=== PATIENT | female | born 1960 | race Caucasian/White ===

== ENCOUNTER 2020-03-22 14:25 | Inpatient (IN) | payer OTHER, MEDICARE ==
[~2020-03-22] VITALS: Ht 157.5 cm; Wt 62.1 kg
[~2020-03-22 14:25] MED LIST: AMBREN PO; PHENERGAN25 M3 PO; Z.0.DEXILANT60 MG PO; Z.0.LIALDA1.2 GM PO; Z.0.LIBRAX CAPSULE1 PO; Z.0.NORCO 5-325 TA1 PO; [UNRECOGNIZED DRUG - CODE] PO; [UNRECOGNIZED DRUG - OTHER] PO; [UNRECOGNIZED DRUG - OTHER] PO; [UNRECOGNIZED DRUG - OTHER] SL
[2020-03-22] MEDS ORDERED: ASPIRIN 81 MG CHEW TAB PO ONE ×2 (14:30→15:00)
--- OUTSIDE RECORDS SUMMARY | 2020-03-22 14:30 | XMS REPORT | Summary of Care ---
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 Name Role Phone JULISA Gifford, ZAFAR Unavailable Unavailable SARA STORY, KESHIA THOMAS Unavailable Unavailable Functional Status Name Dates Details Functional status health issues are not documented Status: Name Dates Details Cognitive status health issues are not d ocumented Status: Problems Name Dates Details Dysphagia (787.20, R13.10) Status: Active Gastric regurgitation (787.03, R11.10) Status: Active Heartburn (787.1, R12) Status: Active Hiatal hernia (553.3, K44.9) Status: Active Nocturnal cough (786.2, R05) Status: Active 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, 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 Medications Name Dates Details raNITIdine HCl - 300 MG Oral Tablet Active Mesalamine 1.2 GM Oral Tablet Delayed Release * Refills: 0 Active Dicyclomine HCl - 10 MG Oral Capsule * Refills: 0 Active Nadolol 20 MG Oral Tablet * Refills: 0 Active Dexilant 60 MG Oral Capsule Delayed Release * Refills: 0 Active Verapamil HCl - 120 MG Oral Tablet * Refills: 0 Active Allergies and Adverse Reactions Name Dates Details Adhesive Tape TAPE (Allergy) Status: Act christen Dilaudid (Allergy) Status: Active Erythromycin Derivatives (Allergy) Statu s: Active Imitrex (Allergy) Status: Active iodine (Allergy) Status: Active Morphine Derivatives (Allergy) Status: A ctive Penicillins (Allergy) Status: Active tramadol (Allergy) Status: Active Ultram TABS (Allergy) Status: Active Past Medical History Name Dates Details History of Crohn's disease (V12.70, Z87. 19) Status: Resolved History of hypercholesterolemia (V12.29, Z86.39) Status: Resolved History of Migraine (346.90, G43.909) Status: Resolved Past myocardial infarction (412, I25.2) Status: Resolved Procedures Procedure Dates Details History of Knee surgery Completed History of Cholecystectomy Completed History of Section Completed History of Oophorectomy Completed History of Tubal Ligation Completed History of Hysterectomy total Completed History of Small bowel resection Complet ed History of Inguinal hernia repair Comple lawson History of Temporomandibular joint surgery Completed Immunization Name Dates Details Immunizations not documented Family History Name Dates Details Family history of Status: Active Name Dates Details Family history of pancreatic cancer (V16 .0, Z80.0) Status: Active Social History Name Dates Details - Status: Name Dates Details Never smoker Vital Signs Date Test Result Details [id number] BP Systolic 109 mm[Hg] Status: Comments: Lo cation: RUE; Position: Sitting BP Diastolic 80 mm[Hg] Status: Comments: Lo cation: RUE; Position: Sitting Height 62 in Status: Weight 144.5 lb Status: Body Mass Index Calculated 26.43 kg/m2 Status: Body Surface Area Calculated 1.66 m2 Status: Temperature 98.2 f Status: Comments: Me thod: Oral Heart Rate 73 /min Status: Comments: Qu ality: Normal Respiration Rate 18 /min Status: Comments: Qu ality: Normal O2 SAT 95 % Status: Comments: So urce: RA Results Date Description Value Details Results not documented Plan of Care Name Dates Details Planned Observations Planned Goals not documented Interventions Provided Plan* At this time there is no indication for surgery. * I will refer her back to Dr. Salvador for management of her Nutcracker esophagus and a possible referral for Transoral Incisionless Fundoplication (TIF) procedure. Instructions Name Dates Details Instructions not documented Encounters Appointment; ZAFAR EGAN M.D. Encounter Diagnosis: Problem not documented On: 04-Apr-2019 11:00 Appointment; ZAFAR EGAN M.D. Encounter Diagnosis: Problem not documented On: 23-Apr-2019 10:30
--- OUTSIDE RECORDS SUMMARY | 2020-03-22 14:30 | XMS REPORT | Continuity of Care Document ---
Author Author [facility] t Organization [facility] Address [address] [place] [address] Phone Unavailable Care Team Providers Care Manager Reimbursement Name Role Phone ZAFAR LOPEZ M.D. Attphys Unavailable Zafar Lopez Attphys KESHIA RUIZ Attcollin Unavailable Problems Condition Name Condition Details Condition Category Status Onset Date Resolution Date Last Treatment Date Treating Clinician Comments Source ESOPHAGEAL MOTILITY / EGD /C VALLECILLO ESOPHAGEAL MOTILITY / EGD /C VALLECILLO Active 04/09/2019 [facility] Active 04-09 00:00:00 2019-04-21 18:02:00 Richard diaz DX: K21.9= /R13.10= /K44.9 DX: K21.9= /R13.10= /K44.9 Active 04/01/2019 [facility] Active 2019-04-01 00:00:00 2019-04-04 09:56:00 Richard Duran History of Crohn's disease History of Crohn's disease Problem Resolved [facility] History of hypercholesterolemia History of hypercholesterolemia Problem Resolved [facility] History of Migraine History of Migraine Problem Resolved [facility] Past myocardial infarction Past myocardial infarction Problem Resolved [facility] Dysphagia Dysphagia Problem Active [facility] Gastric regurgitation Gastric regurgitation Problem Active [facility] Heartburn Heartburn Problem Active [facility] Nocturnal cough Nocturnal cough Problem Active [facility] Hiatal hernia Hiatal hernia Problem Active [facility] Nutcracker esophagus Nutcracker esophagus Problem Active [facility] Crohn's disease (disorder) 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 Hyperlipidemia (disorder) Hype rlipidemia (disorder) Resolved Problem 04/20/2019 [facility] Problem Resolved 2019-04-20 21:37:25 [facility] Allergies, Adverse Reactions, Alerts Allergy Name Allergy Type Status Severity Reaction(s) Onset Date Inacti ve Date Treating Clinician Comments Source Penicillins drug allergy Active [facility] Adhesive Tape TAPE drug allergy Active [facility] Dilaudid drug allergy [facility] Erythromycin Derivatives drug allergy Active [facility] Imitrex drug allergy Active [facility] iodine drug allergy Active [facility] Morphine Derivatives drug allergy Active [facility] tramadol drug allergy [facility] Ultram TABS drug allergy Active [facility] penicillins penicillins Active [facility] propranolol propranolol Active [facility] erythromycin erythromycin Active [facility] morphine morphine Active [facility] Imitrex Imitrex Active [facility] Dilaudid Dilaudid [facility] Levaquin Levaquin Active [facility] Alinia Active [facility] ermann Xifaxan Xifaxan Active [facility] iodine iodine Active [facility] Adhesive Tape Adhesive Tape Active [facility] traMADOL traMADOL Active [facility] Family History Family Member Diagnosis Comments Start Date Stop Date Source Mother Family history of [facility] Father Family history of pancreatic cancer [facility] Social History Social Habit Start Date Stop Date Quantity Comments Source Sex Assigned At Kiran Kennedy Social History 2019-04-16 14:47:36 2019-04-16 14:47:36 [facility] Smoking Status Start Date Stop Date Source Never smoker [facility] Medications Ordered Medication Name Filled Medication Name Start Date Stop Da te Current Medication? Ordering Clinician Indication Dosage Frequency Signature (SIG) Comments Components Source Sodium Chloride 0.9% IV 1000 mL 2019-04-18 20:36:00 No 1,000 mL, Rate: 25 ml/hr, Infuse over: 40 hr, Route: IV, Dosing Weight 66.136 kg, Total Volume: 1,000, Start date: 04/18/19 15:36:00 CDT, Duration: 30 day, Stop date: 05/18/19 15:35:00 CDT, 1.72, m2 Richard Duran Aimovig 70 mg/mL subcutaneous solution 2019-04-18 16:44:00 Yes SUB- Q, qMonth, 0 Refill(s) Richard Duran 0.8 ML adalimumab 50 MG/ML Auto-Injector [Humira] 2019-04-18 16:43:00 Yes 50 mg = 1 ml, SUB-Q, Q14D, # 1 kit, 0 Refill(s) [facility] Amitriptyline 2019-04-18 16:41:00 Yes 200 mg, PO, Bedtime, 0 Refill(s) [facility] ranitidine 300 mg oral tablet 2019-04-16 14:33:00 Yes 300 mg = 1 tab, PO, Bedtime [facility] nadolol 20 mg oral tablet 2019-04-16 14:33:00 Yes 40 mg = 2 tab, PO, Daily [facility] verapamil 120 mg oral tablet 2019-04-16 14:33:00 Yes 120 mg = 1 tab, PO [facility] mesalamine 1200 MG Enteric Coated Tablet 2019-04-16 14:32:00 Yes 2.4 gm = 2 tab, PO, Daily [facility] dicyclomine 10 mg oral capsule 2019-04-16 14:32:00 Yes 20 mg = 2 cap, PO [facility] dexlansoprazole 60 MG Enteric Coated Capsule [Dexilant] 2019-04-16 14:32:00 Yes 60 mg = 1 cap, PO, Daily [facility] raNITIdine HCl - 300 MG Oral Tablet raNITIdine HCl - 300 MG Oral Tabl et Yes [facility] Mesalamine 1.2 GM Oral Tablet Delayed Release Mesalami ne 1.2 GM Oral Tablet Delayed Release Yes [facility] Dicyclomine HCl - 10 MG Oral Capsule Dicyclomine HCl - 10 MG Oral C apsule Yes [facility] Nadolol 20 MG Oral Tablet Nadolol 20 MG Oral Tablet Yes [facility] Dexilant 60 MG Oral Capsule Delayed Release Dexilant 6 0 MG Oral Capsule Delayed Release Yes [facility] Verapamil HCl - 120 MG Oral Tablet Verapamil HCl - 120 MG Oral Tablet Yes [facility] Immunizations Ordered Immunization Name Filled Immunization Name Date Status Comments Source FLUCELVAX QUAD PF 2018-07-04 00:00:00 Completed [facility] Vital Signs Vital Name Observation Time Observation Value Comments Source BP Systolic 2019-04-23 10:56:00 109 mm[Hg] Location: RUE; Positi on: Sitting [facility] BP Diastolic 2019-04-23 10:56:00 80 mm[Hg] Location: RUE; Positi on: Sitting [facility] Height 2019-04-23 10:56:00 62 [in_us] [facility] Weight 2019-04-23 10:56:00 144.5 [lb_av] [facility] Body Mass Index Calculated 2019-04-23 10:56:00 26.43 kg/m2 [facility] Temperature 2019-04-23 10:56:00 98.2 [degF] Method: Oral [facility] Heart Rate 2019-04-23 10:56:00 73 /min Quality: Normal [facility] Respiration Rate 2019-04-23 10:56:00 18 /min Quality: Normal [facility] O2 SAT 2019-04-23 10:56:00 95 % Source: RA [facility] Systolic (mm Hg) 2019-04-18 19:30:00 Juan rial [place] Diastolic (mm Hg) 2019-04-18 19:30:00 Mem orial Roger Respitory Rate 2019-04-18 19:30:00 Memori al Roger Systolic (mm Hg) 2019-04-18 19:15:00 Juan rial Roger Diastolic (mm Hg) 2019-04-18 19:15:00 Mem orial [place] Respitory Rate 2019-04-18 19:15:00 Memori al [place] Systolic (mm Hg) 2019-04-18 18:55:00 Juan rial Roger Diastolic (mm Hg) 2019-04-18 18:55:00 Mem orial [place] Respitory Rate 2019-04-18 18:55:00 Memori al Roger Heart Rate 2019-04-18 16:00:00 [facility] Temperature Oral (F) 2019-04-18 16:00:00 98.4 F [facility] Height 2019-04-16 14:31:00 157.48 cm [facility] BMI Calculated 2019-04-16 14:31:00 Nancyvaishali Tee Weight 2019-04-16 14:31:00 [facility] BP Systolic 2019-04-04 11:37:00 122 mm[Hg] Location: RUE; Positi on: Sitting [facility] BP Diastolic 2019-04-04 11:37:00 82 mm[Hg] Location: RUE; Positi on: Sitting [facility] Height 2019-04-04 11:37:00 62 [in_us] [facility] Weight 2019-04-04 11:37:00 145.5 [lb_av] [facility] Body Mass Index Calculated 2019-04-04 11:37:00 26.61 kg/m2 [facility] Temperature 2019-04-04 11:37:00 97.9 [degF] Method: Oral [facility] Heart Rate 2019-04-04 11:37:00 67 /min Quality: Normal Unive [facility] Respiration Rate 2019-04-04 11:37:00 18 /min Quality: Normal [facility] O2 SAT 2019-04-04 11:37:00 97 % Source: RA [facility] Procedures Procedure Date / Time Performed Performing Clinician Sour e History of Knee surgery [facility] History of Cholecystectomy Unive [facility] History of Section [facility] History of Oophorectomy [facility] History of Tubal Ligation Univer [facility] History of Hysterectomy total [facility] History of Small bowel resection [facility] History of Inguinal hernia repair [facility] History of Temporomandibular joint surgery [facility] Cataract surgery<sup>1</sup> Mem orial Roger section [facility] n Hernia repair [facility] Hysterectomy [facility] Oophorectomy [facility] Operation [facility] Tubal ligation [facility] Plan of Care Planned Activity Planned Date Details Comments Source Future Scheduled Test 2020-05-15 00:00:00 INFLUENZA VACCINE [code = INFLUENZA VACCINE] [facility] Future Scheduled Test 2010 00:00:00 BREAST CANCER SCRE ENING [code = BREAST CANCER SCREENING] [facility] Future Scheduled Test 2010 00:00:00 COLONOSCOPY SCREEN ING [code = COLONOSCOPY SCREENING] [facility] Future Scheduled Test 2010 00:00:00 SHINGLES VACCINES (#1) [code = SHINGLES VACCINES (#1)] [facility] Scheduled Test 1981 00:00:00 Screening for duncan gnant neoplasm of cervix (procedure) [code = 915431278] [facility] Encounters Start Date/Time End Date/Time Encounter Type Admission Type Attendi [facility] Care Department Encounter ID Source 2019-04-23 10:30:00 2019-04-23 10:30:00 Appointment; ERNESTO LOPEZ M.D. BANKI, FARZANEH, M.D. [facility] Thoracic Surgery [facility] [id number] [facility] 2019-04-18 10:21:00 2019-04-18 14:54:00 Outpatient Sandy Lopez [facility] [id number] 2019-04-18 10:21:00 2019-04-18 10:21:00 Outpatient [facility] [facility] 2019-04-04 09:05:00 2019-04-04 23:59:00 Outpatient Sandy Lopez [facility] [id number] 2019-04-04 11:00:00 2019-04-04 11:00:00 Appointment; ERNESTO LOPEZ M.D. BANKI, FARZANEH, M.D. [facility] Thoracic Surgery [facility] [id number] [facility] 2019-04-04 09:05:00 2019-04-04 09:05:00 Outpatient [facility] [address] [place] [address] Results Test Description Test Time Test Comments Results Result Comments Source US ABDOMEN COMPLETE [facility] [address] [address] Patient Name: BARBARA CERVANTES MR #: [id number] : 1960 Age/Sex: 57/F Req #: [id number] Adm Physician: Ordered by: KESHIA RUIZ MD Report #: [id number] Location: US Room/Bed: Procedure: [id number] US/US ABDOMEN COMPLETE Exam Date: Exam Time: REPORT STATUS: Signed PROCEDURE: ABDOMINAL ULTRASOUND COMPARISON: None. INDICATIONS: Abdominal Pain FINDINGS: Liver: Measures 14.2 cm with increased hepatic parenchymal echogenicity. No focal mass. Main portal vein: Measures 11 mm with normal hepatopedal flow. Gallbladder: Has been removed Common Bile Duct: Measures 6 mm with no echogenic filling defect. Sonographic Gonzales's sign: Negative Right kidney: Measures 10.2 x 3.7 x 4.0 cm. No solid or cystic mass, echogenic calculi, or hydronephrosis. Normal parenchymal echogenicity. Left kidney: Measures 10.6 x 5.4 x 5.1 cm. No solid or cystic mass, echogenic calculi, or hydronephrosis. Normal parenchymal echogenicity. Spleen: Measures 9.6 x 3.9 x 4.0 cm. No mass. Pancreas: The visualized portions of the pancreas are normal. Inferior vena cava: Normal. Aorta: Normal. Ascites: None. CONCLUSION: 1. No acute sonographic abnormality. 2. Increased hepatic echogenicity compatible with fatty infiltration. Manolo Gray D.O. Dictated by: Manolo Gray D.O. on 09/26/2017 at 11:30 Electronically approved by: Manolo Gray D.O. on 09/26/2017 at 11:30 Dictated By: MANOLO GRAY DO 1130 Transcribed By: JADIEL on 09/26/17 1130 COPY TO: KESHIA RUIZ MD
--- OUTSIDE RECORDS SUMMARY | 2020-03-22 14:30 | XMS REPORT | Clinical Summary ---
Author Author [facility] Address Unknown Phone Unavailable Care Team Providers Care Park Worker Name Role Phone PCP Unavailable Allergies Not on File Medications Not on file Active Problems Not on file Immunizations Name Administration Dates Next Due FLUCELVAX QUAD PF 07/04/2018 Social History Date Tobacco Use Types Packs/Day Years Used Never Assessed Sex Assigned at Date Recorded Not on file Industry Job Start Date Occupation Not on file Not on file Not on file Travel End Travel History Travel Start No recent travel history available. 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
--- OUTSIDE RECORDS SUMMARY | 2020-03-22 14:30 | XMS REPORT | Continuity of Care Document ---
Author Author BARBARA Mccarty Z2 Address Unknown Phone Unavailable Care Team Providers [employer] Controller Name Role Phone [employer] Information [employer] [employer] Unavailable Un available Problems Problem Status Onset Date Classification Date Reported Comments Source ESOPHAGEAL MOTILITY / EGD /C VALLECILLO Active 04/09/2019 [facility] DX: K21.9= /R13.10= /K44.9 Act christen 04/01/2019 [facility] Myocardial infarction (disorder) Resolved 10/15/2004 Problem 04/20/2019 Pt states DE was to reaction to migraine medication Imitrex [facility] Crohn's disease (disorder) Res olved Problem 04/2019 [facility] Dysphagia (disorder) Resolved Problem 04/20/2019 [facility] Gastroesophageal reflux disease (disorder) Resolved Problem 04/20/2019 [facility] History of - migraine (context-dependent category) Resolved Problem 04/20/2019 [facility] Hiatal hernia (disorder) Resol kenia Problem 04/2019 [facility] Hyperlipidemia (disorder) Reso lved Problem 04/2019 [facility] Medications Medication Details Route Status Patient Instructions Ordering Provider Order Date Source Sodium Chloride 0.9% IV 1000 mL 1,000 mL, Rate: 25 ml/hr, Infuse over: 40 hr, Route: IV, Dosing Weight 66.136 kg, Total Volume: 1,000, Start date: 04/18/19 15:36:00 CDT, Duration: 30 day, Stop date: 05/18/19 15:35:00 CDT, 1.72, m2 Inactiv e 04/18/2019 [facility] Aimovig 70 mg/mL subcutaneous solution SUB-Q, qMonth, 0 Refill(s) Active 04/18/2019 [facility] 0.8 ML adalimumab 50 MG/ML Auto-Injector [Humira] 50 mg = 1 ml, SUB-Q, Q14D, # 1 kit, 0 Refill(s) Active 04/18/2019 [facility] Amitriptyline 200 mg, PO, Bedt dale, 0 Refill(s) Active 04/18/2019 [facility] ranitidine 300 mg oral tablet 300 mg = 1 tab, PO, Bedtime Active 04/16/2019 [facility] nadolol 20 mg oral tablet 40 m g = 2 tab, PO, Daily Active 04/16/2019 [facility] verapamil 120 mg oral tablet 1 20 mg = 1 tab, PO Active 04/16/2019 [facility] mesalamine 1200 MG Enteric Coated Tablet 2.4 gm = 2 tab, PO, Daily Active 04/16/2019 [facility] dicyclomine 10 mg oral capsule 20 mg = 2 cap, PO Active 04/16/2019 [facility] dexlansoprazole 60 MG Enteric Coated Capsule [Dexilant ] 60 mg = 1 cap, PO, Daily Activ e 04/16/2019 [facility] Allergies, Adverse Reactions, Alerts Substance Category Reaction Severity Reaction type Status Date Reported Comments Source penicillins Assertion Drug allergy Active [facility] propranolol Assertion Drug allergy Active [facility] erythromycin Assertion Drug allergy Active [facility] morphine Assertion Drug allergy Active [facility] Imitrex Assertion Drug allergy Active [facility] Dilaudid Assertion Drug allergy Active [facility] Ultram Assertion Drug allergy Active [facility] Levaquin Assertion Drug allergy Active [facility] Alinia Assertion Drug allergy Active [facility] Xifaxan Assertion Drug allergy Active [facility] iodine Assertion Drug allergy Active [facility] Adhesive Tape Assertion Propensity to adverse reacti ons to substance Active [facility] traMADOL Assertion Drug allergy Active [facility] Immunizations No Data Provided for This Section Results No Data Provided for This Section Pathology Reports No Data Provided for This Section Diagnostic Reports Report Value Date Source Barium Swallow w Esophagus Function DX Patient Name: BARBARA CERVANTES : 1960; Age: 58 years y/o Female MR: [id number] Study: Barium Swallow w Esophagus Function DX 04/04/2019 9:24 CDT Clinical Indication: K21.9 Gastro-esophageal reflux disease without esophagitis ; R13.10 Dysphagia, unspecified - K21.9 Gastro-esophageal reflux disease without esophagitis ; R13.10 Dysphagia, unspecified. COMPARISON: None REFERENCE AIR KERMA: 117.1 mGy Fluoroscopy time: 3.4 minutes TECHNIQUE: Thin barium was utilized for recumbent prone oblique and LPO images. Thick barium was utilized for upright imaging of the esophagus and pharynx. Granola mixed with barium was given to evaluate motility with solids. FINDINGS: There is no delay in passage of the barium bolus from the pharynx into the esophagus. The cricopharyngeus relaxes normally. There is no evidence for cricopharyngeal bar or Zenker's diverticulum. Prone and LPO images of the esophagus reveal normal esophageal caliber. There is a sliding 2-3 cm hiatal hernia. There are tertiary waves with mild dysmotility and delay in contrast passage. Upright images with thick barium reveals mild dysmotility and delay in contrast passage. There is reduction in the hiatal hernia. Subsequently 2 separate swallows of a small piece of granola and barium were fluoroscopically followed through the length of the esophagus. There is moderate dysmotility and delay in contrast passage. IMPRESSION: 1. Sliding 2-3 cm hiatal hernia. 2. Up to moderate dysmotility and delay in contrast passage greatest with granola administration. [id number] 04/04/2019 [facility] Consultation Notes No Data Provided for This Section Discharge Summaries No Data Provided for This Section History and Physicals No Data Provided for This Section Vital Signs Vital Sign Value Date Comments Source Systolic (mm Hg) 111 04/18/2019 [facility] Diastolic (mm Hg) 70 04/18/2019 [facility] Respitory Rate 14 04/18/2019 [facility] Systolic (mm Hg) 109 04/18/2019 [facility] Diastolic (mm Hg) 52 04/18/2019 [facility] Respitory Rate 16 04/18/2019 [facility] Systolic (mm Hg) 107 04/18/2019 [facility] Diastolic (mm Hg) 65 04/18/2019 [facility] Respitory Rate 13 04/18/2019 [facility] Heart Rate 64 04/18/2019 [facility] Temperature Oral (F) 98.4 F 04/18/2019 [facility] Height 157.48 cm 04/16/2019 [facility] BMI Calculated 26.67 04/16/2019 [facility] Weight 66.136 04/16/2019 [facility] Encounters Location Location Details Encounter Type Encounter Number Reason For Visit Attending Provider ADM Date DC Date Status Source [facility] Outpatient [id number] [facility] 04/04/2019 04/05/2019 [facility] Bedded Outpatient [id number] [facility] 04/18/2019 04/18/2019 [facility] Procedures Procedure Code Date Perfomer Comments Source Cataract surgery<sup>1</sup> 1 [id number] both eyes [facility] section [id number] [facility] Cholecystectomy [id number] [facility] Hernia repair [id number] [facility] Hysterectomy [id number] [facility] Oophorectomy [id number] [facility] Operation [id number] [facility] Small bowel resection [id number] [facility] Tubal ligation [id number] [facility] Assessment and Plan No Data Provided for This Section Plan of Care No Data Provided for This Section Social History Social History Date Source Social History TypeResponse Substance Abuse Use: None. Alcohol Never Smoking Status Never smoker; Exposure to Tobacco Smoke None; Cigarette Smoking Last 365 Days No; Reg Smoking Cessation Counseling No entered on: 04/18/19 04/16/2019 [facility] Family History No Data Provided for This Section Advance Directives No Data Provided for This Section Functional Status No Data Provided for This Section
--- OUTSIDE RECORDS SUMMARY | 2020-03-22 14:30 | XMS REPORT | Summary of Care ---
Author Author [facility] Organization [facility] Address Unknown Phone Unavailable Encounter HOMAR Weeks(YAIMA) [id number] Date(s): 04/18/19 - 04/18/19 [facility] [address] [place] [address]- Discharge Disposition: Home or Self Care Attending Physician: Araceli Lopez MD Referring Physician: Araceli Lopez MD Vital Signs 1 2 3 Most recent to oldest [Reference Range]: 157.48 cm (04/16/19 9:31 AM) Height 98.4 DegF (04/18/19 11:00 AM) Temperature Oral [96.4-99.1 DegF] 111/70 mmHg (04/18/19 2:30 PM) 109/52 mmHg (04/18/19 2:15 PM) 107/65 mmHg (04/18/19 1:55 PM) Blood Pressure [90-140/60-90 mmHg] 14 BRMIN (04/18/19 2:30 PM) 16 BRMIN (04/18/19 2:15 PM) 13 BRMIN *LOW* (04/18/19 1:55 PM) Respiratory Rate [14-20 BRMIN] 64 bpm (04/18/19 11:00 AM) Peripheral Pulse Rate [60-100 bpm] 66.136 kg (04/16/19 9:31 AM) Weight 26.67 m2 (04/16/19 9:31 AM) Body Mass Index Problem List Condition Effective Dates Status Health Status Informan t Crohn's Resolved disease(Confirmed) Dysphagia(Confirmed) Resolved GERD Resolved (gastroesophageal reflux disease)(Confirmed) Hx of Resolved migraines(Confirmed) Hiatal Resolved hernia(Confirmed) HLD Resolved (hyperlipidemia)(Con firmed) Myocardial 2005 Resolved infarct(Confirmed)1 1Pt states SD was to reaction to migraine medication Imitrex Allergies, Adverse Reactions, Alerts Substance Reaction Severity Status penicillins Active propranolol Active erythromycin Active morphine Active Imitrex Active Dilaudid Active Ultram Active Levaquin Active Alinia Active Xifaxan Active iodine Active Adhesive Tape Active traMADOL Active Medications Aimovig 70 mg/mL subcutaneous solution SUB-Q, qMonth, 0 Refill(s) Start Date: 04/18/19 Status: Ordered amitriptyline 200 mg, PO, Bedtime, 0 Refill(s) Start Date: 04/18/19 Status: Ordered Dexilant 60 mg oral delayed release capsule 60 mg = 1 cap, PO, Daily Start Date: 04/16/19 Status: Ordered dicyclomine 10 mg oral capsule 20 mg = 2 cap, PO Start Date: 04/16/19 Status: Ordered Humira Pen 40 mg/0.8 mL subcutaneous solution 50 mg = 1 ml, SUB-Q, Q14D, # 1 kit, 0 Refill(s) Start Date: 04/18/19 Status: Ordered mesalamine 1.2 g oral enteric coated tablet 2.4 gm = 2 tab, PO, Daily Start Date: 04/16/19 Status: Ordered nadolol 20 mg oral tablet 40 mg = 2 tab, PO, Daily Start Date: 04/16/19 Status: Ordered ranitidine 300 mg oral tablet 300 mg = 1 tab, PO, Bedtime Start Date: 04/16/19 Status: Ordered Sodium Chloride 0.9% IV 1000 mL 1,000 mL, Rate: 25 ml/hr, Infuse over: 40 hr, Route: IV, Dosing Weight 66.136 kg , Total Volume: 1,000, Start date: 04/18/19 15:36:00 CDT, Duration: 30 day, Stop date: 05/18/19 15:35:00 CDT, 1.72, m2 Start Date: 04/18/19 Stop Date: 04/18/19 Status: Discontinued verapamil 120 mg oral tablet 120 mg = 1 tab, PO Start Date: 04/16/19 Status: Ordered Results No data available for this section Immunizations No data available for this section Procedures Procedure Date Related Diagnosis Body Site Status Cataract surgery1 Completed section Completed Cholecystectomy Completed Hernia repair Completed Hysterectomy Completed Oophorectomy Completed Operation Completed Operation Completed Small bowel resection Completed Tubal ligation Completed 1both eyes Social History Social History Type Response Substance Abuse Use: None. Alcohol Never Smoking Status Never smoker; Exposure to T obacco Smoke None; Cigarette Smoking Last 365 Days No; Reg Smoking Cessation Counseli braeden No entered on: 04/18/19 Assessment and Plan No data available for this section
--- OUTSIDE RECORDS SUMMARY | 2020-03-22 14:30 | XMS REPORT | Summary of Care ---
Author Author [facility] Organization [facility] Address Unknown Phone Unavailable Encounter HQ Elle_joaquín(FIN) [id number] Date(s): 04/04/19 - 04/04/19 [facility] [address] [place] [address]- Discharge Disposition: Home or Self Care Attending Physician: Araceli Lopez MD Referring Physician: Araceli Lopez MD Vital Signs No data available for this section Problem List No data available for this section Allergies, Adverse Reactions, Alerts Substance Reaction Severity Status penicillins Active propranolol Active erythromycin Active morphine Active Imitrex Active Dilaudid Active Ultram Active Levaquin Active Alinia Active Xifaxan Active iodine Active Adhesive Tape Active traMADOL Active Medications No data available for this section Results No data available for this section Immunizations No data available for this section Procedures No data available for this section Social History No data available for this section Assessment and Plan No data available for this section
--- NOTE | 2020-03-22 14:33 | Emergency Department Note ---
History of Present Illnes History of Present Illness Chief Complaint: Chest Pain History of Present Illness This is a 59 year old female .c/o cp and left side weakness x 1 wk wo rse today LEFT SIDE CHEST PAIN X 1 WEEK WITH EPISODE NAUSEA. PAIN IS REPORDUCIBLE AND RADIATES TO LEFT ARM AND LEFT LEG. DESCRIBED " FEELING" Arrival Mode: Car Onset (how long ago): week(s) (1 wk) Location: left side chest Quality: mod Radiation: non-radiation, back, neck, extremity, abdomen, periumbilical, flank, proximal, distal, other Severity: moderate Onset quality: gradual Duration (how long): week(s) (1 wk) Progression: waxing and waning Context: recent illness, recent surgery, recent immobilization, recent travel, trauma/injury, new medications, hx of DVT/PE, non-compliance w/ medications, other Relieving factors: none Exacerbating factors: none Treatments prior to arrival: none Past Medical/Family History Physician Review I have reviewed the patient's past medical and family history. Any updates have been documented here. Past Medical History Other Medical History: ULCERS, MIGRAINES, FIBROMYALIA Other Surgery: Cholecysctectomy Social History Smoking Cessation: Never Smoker Alcohol Use: None Any Illegal Drug Use: No TB Exposure/Symptoms: No Physically hurt or threatened: No Family History Family history of heart diseas: No Other Last Tetanus: 2 YEARS AGO Any Pre-Existing Lines (PICC,: No Review of Systems Review of Systems Constitutional: weakness (left side ) EENTM: no symptoms Cardiovascular: chest pain Respiratory: no symptoms Gastrointestinal: no symptoms Genitourinary: no symptoms Musculoskeletal: no symptoms Neurological: no symptoms, weakness (left side ) Psychological: no symptoms Endocrine: no symptoms Hematological/Lymphatic: no symptoms Review of other systems All other systems reviewed and negative. Physical Exam Related Data Allergies: Coded Allergies: Penicillins (Verified Allergy, Severe, SWELLING, 07/28/09) erythromycin base (Verified Allergy, Severe, SWELLING, 07/28/09) hydromorphone (Verified Allergy, Severe, RASH, 07/28/09) iodine (Verified Allergy, Severe, RASH, 07/28/09) morphine (Verified Allergy, Severe, RASH, 07/28/09) propranolol (Verified Allergy, Severe, RASH, 07/28/09) rifaximin (Verified Allergy, Severe, RASH, 07/28/09) sumatriptan (Verified Allergy, Severe, RASH, 07/28/09) tramadol (Verified Allergy, Severe, RASH, 07/28/09) levofloxacin (Verified Allergy, Mild, RASH, 07/28/09) Uncoded Allergies: ADHESIVE TAPE (Allergy, Mild, RASH, 07/28/09) IRENE (Allergy, Mild, IRENE, 07/28/09) UNKNOWN (Allergy, Mild, RASH, 07/28/09) Vital signs reviewed: Yes Physical Exam CONSTITUTIONAL Constitutional: well-developed, well-nourished HENT HENT: normocephalic, atraumatic, oropharynx clear/moist, nose normal HENT L/R: left ext ear normal, right ext ear normal EYES Eyes: PERRL, conjunctivae normal NECK Neck: ROM normal PULMONARY Pulmonary: effort normal, breath sounds normal CARDIOVASCULAR Cardiovascular: regular rhythm, heart sounds normal, intact distal pulses, capillary refill normal, normal rate, other (c/o left side chest pain ) GASTROINTESTINAL Abdominal: soft, nontender, bowel sounds normal GENITOURINARY Genitourinary: exam deferred SKIN Skin: warm, dry MUSCULOSKELETAL Musculoskeletal: ROM normal NEUROLOGICAL Neurological: alert, oriented x 3, DTRs normal, no gross motor or sensory deficits, cranial nerve deficit, sensory deficit, weakness (left side weakness ) PSYCHOLOGICAL Psychological: mood/affect normal, judgement normal Results Laboratory Laboratory Laboratory Tests Test 03/22/20 15:45 03/22/20 15:43 03/22/20 15:00 White Blood Count 8.56 x10e3/uL (4.8-10.8) Red Blood Count 2.73 x10e6/uL (3.6-5.1) Hemoglobin 6.3 g/dL (12.0-16.0) Hematocrit 22.3 % (34.2-44.1) Mean Corpuscular Volume 81.7 fL (81-99) Mean Corpuscular Hemoglobin 23.1 pg (28-32) Mean Corpuscular Hemoglobin Concent 28.3 g/dL (31-35) Red Cell Distribution Width 15.5 % (11.7-14.4) Platelet Count 353 x10e3/uL (140-360) Neutrophils (%) (Auto) 61.7 % (38.7-80.0) Lymphocytes (%) (Auto) 27.9 % (18.0-39.1) Monocytes (%) (Auto) 7.2 % (4.4-11.3) Eosinophils (%) (Auto) 2.3 % (0.0-6.0) Basophils (%) (Auto) 0.4 % (0.0-1.0) Neutrophils # (Auto) 5.3 (2.1-6.9) Lymphocytes # (Auto) 2.4 (1.0-3.2) Monocytes # (Auto) 0.6 (0.2-0.8) Eosinophils # (Auto) 0.2 (0.0-0.4) Basophils # (Auto) 0.0 (0.0-0.1) Absolute Immature Granulocyte (auto 0.04 x10e3/uL (0-0.1) Prothrombin Time 12.9 seconds (11.9-14.5) Prothromb Time International Ratio 0.92 Activated Partial Thromboplast Time 29.6 seconds (23.8-35.5) Sodium Level 140 mmol/L (136-145) Potassium Level 4.1 mmol/L (3.5-5.1) Chloride Level 110 mmol/L (98-107) Carbon Dioxide Level 22 mmol/L (22-29) Anion Gap 12.1 mmol/L (8-16) Blood Urea Nitrogen 19 mg/dL (7-26) Creatinine 1.29 mg/dL (0.57-1.11) Estimat Glomerular Filtration Rate 42 ML/MIN (60-) BUN/Creatinine Ratio 15 (6-25) Glucose Level 124 mg/dL (74-118) Calcium Level 9.3 mg/dL (8.4-10.2) Magnesium Level 1.9 MG/DL (1.3-2.1) Total Bilirubin 0.1 mg/dL (0.2-1.2) Aspartate Amino Transf (AST/SGOT) 14 IU/L (5-34) Alanine Aminotransferase (ALT/SGPT) 14 IU/L (0-55) Alkaline Phosphatase 61 IU/L (40-150) Creatine Kinase 68 IU/L (29-168) Creatine Kinase MB 0.50 ng/mL (0-5.0) Troponin I 0.009 ng/mL (0-0.300) B-Type Natriuretic Peptide 100.4 pg/mL (0-100) Total Protein 6.6 g/dL (6.5-8.1) Albumin 3.6 g/dL (3.5-5.0) Globulin 3.0 g/dL (2.3-3.5) Albumin/Globulin Ratio 1.2 (0.8-2.0) Thyroid Stimulating Hormone (TSH) 1.498 uIU/mL (0.350-4.940) Stool Occult Blood Positive (NEGATIVE) Laboratory Tests Test 03/22/20 15:45 03/22/20 15:43 03/22/20 15:00 White Blood Count 8.56 x10e3/uL (4.8-10.8) Red Blood Count 2.73 x10e6/uL (3.6-5.1) Hemoglobin 6.3 g/dL (12.0-16.0) Hematocrit 22.3 % (34.2-44.1) Mean Corpuscular Volume 81.7 fL (81-99) Mean Corpuscular Hemoglobin 23.1 pg (28-32) Mean Corpuscular Hemoglobin Concent 28.3 g/dL (31-35) Red Cell Distribution Width 15.5 % (11.7-14.4) Platelet Count 353 x10e3/uL (140-360) Neutrophils (%) (Auto) 61.7 % (38.7-80.0) Lymphocytes (%) (Auto) 27.9 % (18.0-39.1) Monocytes (%) (Auto) 7.2 % (4.4-11.3) Eosinophils (%) (Auto) 2.3 % (0.0-6.0) Basophils (%) (Auto) 0.4 % (0.0-1.0) Neutrophils # (Auto) 5.3 (2.1-6.9) Lymphocytes # (Auto) 2.4 (1.0-3.2) Monocytes # (Auto) 0.6 (0.2-0.8) Eosinophils # (Auto) 0.2 (0.0-0.4) Basophils # (Auto) 0.0 (0.0-0.1) Absolute Immature Granulocyte (auto 0.04 x10e3/uL (0-0.1) Prothrombin Time 12.9 seconds (11.9-14.5) Prothromb Time International Ratio 0.92 Activated Partial Thromboplast Time 29.6 seconds (23.8-35.5) Sodium Level 140 mmol/L (136-145) Potassium Level 4.1 mmol/L (3.5-5.1) Chloride Level 110 mmol/L (98-107) Carbon Dioxide Level 22 mmol/L (22-29) Anion Gap 12.1 mmol/L (8-16) Blood Urea Nitrogen 19 mg/dL (7-26) Creatinine 1.29 mg/dL (0.57-1.11) Estimat Glomerular Filtration Rate 42 ML/MIN (60-) BUN/Creatinine Ratio 15 (6-25) Glucose Level 124 mg/dL (74-118) Calcium Level 9.3 mg/dL (8.4-10.2) Magnesium Level 1.9 MG/DL (1.3-2.1) Total Bilirubin 0.1 mg/dL (0.2-1.2) Aspartate Amino Transf (AST/SGOT) 14 IU/L (5-34) Alanine Aminotransferase (ALT/SGPT) 14 IU/L (0-55) Alkaline Phosphatase 61 IU/L (40-150) Creatine Kinase 68 IU/L (29-168) Creatine Kinase MB 0.50 ng/mL (0-5.0) Troponin I 0.009 ng/mL (0-0.300) B-Type Natriuretic Peptide 100.4 pg/mL (0-100) Total Protein 6.6 g/dL (6.5-8.1) Albumin 3.6 g/dL (3.5-5.0) Globulin 3.0 g/dL (2.3-3.5) Albumin/Globulin Ratio 1.2 (0.8-2.0) Thyroid Stimulating Hormone (TSH) 1.498 uIU/mL (0.350-4.940) Stool Occult Blood Positive (NEGATIVE) Laboratory Tests Test 03/22/20 15:43 03/22/20 15:00 White Blood Count 8.56 x10e3/uL (4.8-10.8) Red Blood Count 2.73 x10e6/uL (3.6-5.1) Hemoglobin 6.3 g/dL (12.0-16.0) Hematocrit 22.3 % (34.2-44.1) Mean Corpuscular Volume 81.7 fL (81-99) Mean Corpuscular Hemoglobin 23.1 pg (28-32) Mean Corpuscular Hemoglobin Concent 28.3 g/dL (31-35) Red Cell Distribution Width 15.5 % (11.7-14.4) Platelet Count 353 x10e3/uL (140-360) Neutrophils (%) (Auto) 61.7 % (38.7-80.0) Lymphocytes (%) (Auto) 27.9 % (18.0-39.1) Monocytes (%) (Auto) 7.2 % (4.4-11.3) Eosinophils (%) (Auto) 2.3 % (0.0-6.0) Basophils (%) (Auto) 0.4 % (0.0-1.0) Neutrophils # (Auto) 5.3 (2.1-6.9) Lymphocytes # (Auto) 2.4 (1.0-3.2) Monocytes # (Auto) 0.6 (0.2-0.8) Eosinophils # (Auto) 0.2 (0.0-0.4) Basophils # (Auto) 0.0 (0.0-0.1) Absolute Immature Granulocyte (auto 0.04 x10e3/uL (0-0.1) Stool Occult Blood Positive (NEGATIVE) Lab results reviewed: Yes Imaging Impressions EXAM: CHEST SINGLE (PORTABLE) DATE: 03/22/2020 3:02 PM INDICATION: Chest pain COMPARISON: None FINDINGS: The trachea is midline. The lungs are symmetrically expanded without evidence for large focal consolidation, pneumothorax, or significant pleural effusion. The cardiomediastinal silhouette appears magnified by technique but otherwise unremarkable. The pulmonary vasculature is not engorged. No acute osseous abnormalities identified. The surrounding soft unremarkable. IMPRESSION: No acute cardiopulmonary process identified. Signed by: Dr. Hank Maria MD on 03/22/2020 3:45 PM Dictated By: HANK MARIA MD 44 Transcribed By: VARUN on 03/22/201544 History: Dizziness Comparison studies: None Technique: Axial images were obtained from the skull base to the vertex. Coronal and sagittal reconstructions obtained from the axial data. Dose modulation, iterative reconstruction, and/or weight based adjustment of the mA/kV was utilized to reduce the radiation dose to as low as reasonably achievable. Findings: Scalp/skull: No abnormalities. No fractures, blastic or lytic lesions. Extra-axial spaces: No masses. No fluid collections. Brain sulci: Appropriate for age. Ventricles: Normal in size and configuration. No hydrocephalus. Parenchyma: No abnormal densities. No masses, hemorrhage, acute or chronic cortical vascular insults. Sellar/suprasellar region: No abnormalities Craniocervical junction: Patent foramen magnum. No Chiari one malformation. IMPRESSION: No abnormalities . Signed by: DR He Pretty M.D. on 03/22/2020 3:32 PM Dictated By: HE POWERS MD 31 Transcribed By: VARUN on 03/22/20 153 Procedures 12 Lead ECG Interpretation Child Care Associate: Interpreted by ED physician Date: Mar 22, 2020 Time: 14:31 Prior BUSINESS ENTERPRISE OFFICER tracings: reviewed Rhythm: sinus rhythm Rate: normal BPM: 75 QRS axis: normal Conduction: 1st degree T wave depression: aVR, V1 Clinical Impression: normal ECG Critical Care Time Subsequent provider I assumed direction of critical care for this patient from another provider of my specialty. Assessment & Plan Reassessment Reassessment 59 y f presented to ed c/o left side chest pain left side weakness x 1 wk worse today Assessment & Plan Final Impression: (1) Chest pain (2) Anemia (3) GI bleed Assessment & Plan discussed lab rad results plan of care and need for admit spoke w/ Dr Gotti will admit consulted Dr Peyton Cee Depart Disposition: ADMITTED Home Meds Reported Medications Hydrocodone Bit/Acetaminophen (Bryan 5-325 Tablet) 1 Each Tablet, 1 EACH PO Q4 07/25/12 Eletriptan Hydrobromide (Relpax) 40 Mg Tablet, 40 MG PO BID PRN 06/08/12 Chlordiazepoxide/Clidinium Br (Librax Capsule) 1 Each Capsule, 1 EACH PO Q6 PRN 06/08/12 Promethazine Hcl (Phenergan) 25 Mg Tablet, 25 MG PO Q6 PRN 06/08/12 Cyanocobalamin (Vitamin B-12) (B-12) 2,500 Mcg Tab.subl, MG SL DAILY 06/08/12 Dexlansoprazole (Dexilant) 60 Mg Joshua.mp, 60 MG PO Q6 PRN 06/08/12 Mesalamine (Lialda) 1.2 Gm Tablet.dr, 1.2 GM PO QID 06/08/12 Amitriptyline Hcl (Amitriptyline Hcl) 150 Mg Tablet, 150 MG PO HS 06/08/12 Methscopolamine [place] (Methscopolamine [place]) 5 Mg Tablet, 40 MG PO DAILY 06/08/12 [Ambren] No Conflict Check, 2 TAB PO DAILY 06/08/12 MAX ROSENBAUM Mar 22, 2020 14:33
[2020-03-22] MEDS ORDERED: PANTOPRAZOLE 40 MG 10ML VIAL IV STA ×2 (14:35→16:33)
[2020-03-22] MEDS ORDERED: ONDANSETRON HCL INJ 2MG/ML 2ML 2 MG/ML VIAL IV PRN (15:00)
[2020-03-22] MEDS ORDERED: METOPROLOL TARTRATE 25 MG TAB PO SCH (15:00)
[2020-03-22] MEDS ORDERED: SODIUM CHLORIDE FLUSH 10 ML SYR INJ PRN (15:00)
[2020-03-22] MEDS ORDERED: ENOXAPARIN SODIUM INJ 100 MG/ML SYR SC SCH (15:00)
[2020-03-22] MEDS ORDERED: FENTANYL CITRATE/PF 100MCG/2 ML INJ IV PRN ×2 (15:00→22:30)
[2020-03-22] MEDS: FAMOTIDINE 20 MG/2 ML VIAL IV SCH ×2 (15:30→20:26)
[2020-03-22] MEDS ORDERED: ENOXAPARIN SOD INJ 60 MG/0.6 ML SYR SC SCH (15:30)
--- NOTE | 2020-03-22 15:35 | Diagnostic Imaging Report ---
History: Dizziness Comparison studies: None Technique: Axial images were obtained from the skull base to the vertex. Coronal and sagittal reconstructions obtained from the axial data. Dose modulation, iterative reconstruction, and/or weight based adjustment of the mA/kV was utilized to reduce the radiation dose to as low as reasonably achievable. Findings: Scalp/skull: No abnormalities. No fractures, blastic or lytic lesions. Extra-axial spaces: No masses. No fluid collections. Brain sulci: Appropriate for age. Ventricles: Normal in size and configuration. No hydrocephalus. Parenchyma: No abnormal densities. No masses, hemorrhage, acute or chronic cortical vascular insults. Sellar/suprasellar region: No abnormalities Craniocervical junction: Patent foramen magnum. No Chiari one malformation. IMPRESSION: No abnormalities . Signed by: DR He Pretty M.D. on 03/22/2020 3:32 PM
--- OUTSIDE RECORDS SUMMARY | 2020-03-22 15:41 | XMS REPORT | Continuity of Care Document ---
Author Author BARBARA Mccarty [employer] Address Unknown Phone Unavailable Care Team Providers Care Business Solutions Analyst Name Role Phone [employer] Information [email or web address] Unavailable Un available Problems Problem Status Onset Date Classification Date Reported Comments Source ESOPHAGEAL MOTILITY / EGD /C VALLECILLO Active 04/09/2019 [facility] DX: K21.9= /R13.10= /K44.9 Act christen 04/01/2019 [facility] Myocardial infarction (disorder) Resolved 10/15/2004 Problem 04/20/2019 Pt states [place] was to reaction to migraine medication Imitrex [facility] Crohn's disease (disorder) Res olved Problem 04/2019 [facility] Dysphagia (disorder) Resolved Problem 04/20/2019 [facility] Gastroesophageal reflux disease (disorder) Resolved Problem 04/20/2019 [facility] History of - migraine (context-dependent category) Resolved Problem 04/20/2019 [facility] Hiatal hernia (disorder) Resol kenia Problem 04/2019 [facility] Hyperlipidemia (disorder) Reso lved Problem 04/2019 [facility] Medications Medication Details Route Status Patient Instructions Ordering Provider Order Date Source Sodium Chloride 0.9% IV 1000 mL 1,000 mL, Rate: 25 ml/hr, Infuse over: 40 hr, Route: IV, Dosing Weight 66.136 kg, Total Volume: 1,000, Start date: 04/18/19 15:36:00 CDT, Duration: 30 day, Stop date: 05/18/19 15:35:00 CDT, 1.72, m2 Inactiv e 04/18/2019 [facility] Aimovig 70 mg/mL subcutaneous solution SUB-Q, qMonth, 0 Refill(s) Active 04/18/2019 [facility] 0.8 ML adalimumab 50 MG/ML Auto-Injector [Humira] 50 mg = 1 ml, SUB-Q, Q14D, # 1 kit, 0 Refill(s) Active 04/18/2019 [facility] Amitriptyline 200 mg, PO, Bedt dale, 0 Refill(s) Active 04/18/2019 [facility] ranitidine 300 mg oral tablet 300 mg = 1 tab, PO, Bedtime Active 04/16/2019 [facility] nadolol 20 mg oral tablet 40 m g = 2 tab, PO, Daily Active 04/16/2019 [facility] verapamil 120 mg oral tablet 1 20 mg = 1 tab, PO Active 04/16/2019 [facility] mesalamine 1200 MG Enteric Coated Tablet 2.4 gm = 2 tab, PO, Daily Active 04/16/2019 [facility] dicyclomine 10 mg oral capsule 20 mg = 2 cap, PO Active 04/16/2019 [facility] dexlansoprazole 60 MG Enteric Coated Capsule [Dexilant ] 60 mg = 1 cap, PO, Daily Activ e 04/16/2019 [facility] Allergies, Adverse Reactions, Alerts Substance Category Reaction Severity Reaction type Status Date Reported Comments Source penicillins Assertion Drug allergy Active [facility] propranolol Assertion Drug allergy Active [facility] erythromycin Assertion Drug allergy Active [facility] morphine Assertion Drug allergy Active [facility] Imitrex Assertion Drug allergy Active [facility] Dilaudid Assertion Drug allergy Active [facility] Ultram Assertion Drug allergy Active [facility] Levaquin Assertion Drug allergy Active [facility] Alinia Assertion Drug allergy Active [facility] Xifaxan Assertion Drug allergy Active [facility] iodine Assertion Drug allergy Active [facility] Adhesive Tape Assertion Propensity to adverse reacti ons to substance Active [facility] traMADOL Assertion Drug allergy Active [facility] Immunizations No Data Provided for This Section Results No Data Provided for This Section Pathology Reports No Data Provided for This Section Diagnostic Reports Report Value Date Source Barium Swallow w Esophagus Function DX Patient Name: BARBARA CERVANTES : 1960; Age: 58 years y/o Female MR: [id number] Study: Barium Swallow w Esophagus Function DX [...] in contrast passage greatest with granola administration. [id number] 04/04/2019 [facility] Consultation Notes No Data Provided for This Section Discharge Summaries No Data Provided for This Section History and Physicals No Data Provided for This Section Vital Signs Vital Sign Value Date Comments Source Systolic (mm Hg) 111 04/18/2019 [facility] Diastolic (mm Hg) 70 04/18/2019 [facility] Respitory Rate 14 04/18/2019 [facility] Systolic (mm Hg) 109 04/18/2019 [facility] Diastolic (mm Hg) 52 04/18/2019 [facility] Respitory Rate 16 04/18/2019 [facility] Systolic (mm Hg) 107 04/18/2019 [facility] Diastolic (mm Hg) 65 04/18/2019 [facility] Respitory Rate 13 04/18/2019 [facility] Heart Rate 64 04/18/2019 [facility] Temperature Oral (F) 98.4 F 04/18/2019 [facility] Height 157.48 cm 04/16/2019 [facility] BMI Calculated 26.67 04/16/2019 [facility] Weight 66.136 04/16/2019 [facility] Encounters Location Location Details Encounter Type Encounter Number Reason For Visit Attending Provider ADM Date DC Date Status Source [facility] Outpatient [id number] [facility] 04/04/2019 04/05/2019 [facility] Bedded Outpatient [id number] [facility] 04/18/2019 04/18/2019 [facility] Procedures Procedure Code Date Perfomer Comments Source Cataract surgery<sup>1</sup> 1 [id number] both eyes [facility] section [id number] [facility] Cholecystectomy [id number] [facility] Hernia repair [id number] [facility] Hysterectomy [id number] [facility] Oophorectomy [id number] [facility] Operation [id number] [facility] Small bowel resection [id number] [facility] Tubal ligation [id number] [facility] Assessment and Plan No Data Provided for This Section Plan of Care No Data Provided for This Section Social History Social History Date Source Social History TypeResponse Substance Abuse Use: None. Alcohol Never Smoking Status Never smoker; Exposure to Tobacco Smoke None; Cigarette Smoking Last 365 Days No; Reg Smoking Cessation Counseling No entered on: 04/18/19 04/16/2019 [facility] Family History No Data Provided for This Section Advance Directives No Data Provided for This Section Functional Status No Data Provided for This Section
--- OUTSIDE RECORDS SUMMARY | 2020-03-22 15:41 | XMS REPORT | Clinical Summary ---
Author Author [facility] Address Unknown Phone Unavailable Care Team Providers Care Accounts Payable Technician Name Role Phone PCP Unavailable Allergies Not [...] Advance Directives For more information, please contact: [phone] Patient Relocation Coordinator Explanation Type Date Recorded Advance Directives, Living Will and Medical Power of Temporary Administrative Assistant
--- OUTSIDE RECORDS SUMMARY | 2020-03-22 15:41 | XMS REPORT | Continuity of Care Document ---
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 Attphys Unavailable Zafar Lopez Attphys KESHIA RUIZ Attphys Unavailable SVETLANA HERNANDEZ Admphys Unavailable Problems Condition Name Condition Details Condition [...] History of Crohn's disease Problem Resolved [facility] History of hypercholesterolemia History of hypercholesterolemia Problem Resolved [facility] History of Migraine History of Migraine Problem Resolved [facility] Past myocardial infarction Past myocardial infarction Problem Resolved [facility] Dysphagia Dysphagia Problem Active [facility] Gastric regurgitation Gastric regurgitation Problem Active [facility] Heartburn Heartburn Problem Active [facility] Nocturnal cough Nocturnal cough Problem Active [facility] Hiatal hernia Hiatal hernia Problem Active [facility] Nutcracker esophagus Nutcracker esophagus Problem Active [facility] Crohn's disease (disorder) 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) Resolved Problem 04/20/2019 [facility] Problem Resolved 2019-04-20 21:37:25 Richard Duran Gastroesophageal reflux disease (disorder) Gastroesophageal reflux disease (disorder) Resolved Problem 04/20/2019 [facility] Problem Resolved 2019-04-20 21:37:25 Peyton Duran History of - migraine (context-dependent category) History of - migraine (context-dependent category) Resolved Problem 04/20/2019 [facility] Problem Resolved 2019-04-20 21:37:25 Richard Duran Hyperlipidemia (disorder) Hype rlipidemia (disorder) Resolved Problem 04/20/2019 [facility] Problem Resolved 2019-04-20 21:37:25 [facility] Allergies, Adverse Reactions, Alerts Allergy Name Allergy Type Status Severity Reaction(s) Onset Date Inacti ve Date Treating Clinician Comments Source Penicillins drug allergy Active [facility] Adhesive Tape TAPE drug allergy Active [facility] Dilaudid drug allergy [facility] Erythromycin Derivatives drug allergy Active [facility]mitrex drug [facility] iodine drug allergy [facility] Morphine Derivatives drug allergy Active [facility] tramadol drug allergy Active [facility] Ultram TABS drug allergy Active [facility] penicillins penicillins Active [facility] propranolol propranolol Active [facility] erythromycin erythromycin Active [facility] morphine morphine Active [facility] [place] Imitrex Imitrex Active [facility] Dilaudid Dilaudid [facility] Levaquin Levaquin Active [facility] [place] Alinia Active [facility] ermann Xifaxan Xifaxan Active [facility] iodine iodine Active [facility] ermann Adhesive Tape Adhesive Tape Active [facility] traMADOL traMADOL Active [facility] [place] Family History Family Member Diagnosis Comments Start Date Stop Date Source Mother Family history of [facility] Father Family history of pancreatic cancer [facility] Social History Social Habit Start Date Stop Date Quantity Comments Source Sex Assigned At Kiran [place] Rastafari Social History 2019-04-16 14:47:36 2019-04-16 14:47:36 [facility] Smoking Status Start Date Stop Date Source Never smoker [facility] Medications Ordered Medication Name Filled Medication [...] SUB-Q, Q14D, # 1 kit, 0 Refill(s) Richard Duran Amitriptyline 2019-04-18 16:41:00 Yes 200 mg, PO, Bedtime, 0 Refill(s) [facility] ranitidine 300 mg oral tablet 2019-04-16 14:33:00 Yes 300 mg = 1 tab, PO, Bedtime [facility] nadolol 20 mg oral tablet 2019-04-16 14:33:00 Yes 40 mg = 2 tab, PO, Daily [facility] verapamil 120 mg oral tablet 2019-04-16 14:33:00 Yes 120 mg = 1 tab, PO [facility] mesalamine 1200 MG Enteric Coated Tablet 2019-04-16 14:32:00 Yes 2.4 gm = 2 tab, PO, Daily [facility] dicyclomine 10 mg oral capsule 2019-04-16 14:32:00 Yes 20 mg = 2 cap, PO [facility] [place] dexlansoprazole 60 MG Enteric Coated Capsule [Dexilant] 2019-04-16 14:32:00 Yes 60 mg = 1 cap, PO, Daily [facility] raNITIdine HCl - 300 MG Oral Tablet raNITIdine HCl - 300 MG Oral Tabl et Yes [facility] Mesalamine 1.2 GM Oral Tablet Delayed Release Mesalami ne 1.2 GM Oral Tablet Delayed Release Yes [facility] Dicyclomine HCl - 10 MG Oral Capsule Dicyclomine HCl - 10 MG Oral C apsule Yes [facility] Nadolol 20 MG Oral Tablet Nadolol 20 MG Oral Tablet Yes [facility] Dexilant 60 MG Oral Capsule Delayed Release Dexilant 6 0 MG Oral Capsule Delayed Release Yes [facility] Verapamil HCl - 120 MG Oral Tablet Verapamil HCl - 120 MG Oral Tablet Yes [facility] Immunizations Ordered Immunization Name Filled Immunization Name Date Status Comments Source FLUCOBIX QUAD PF 2018-07-04 00:00:00 Completed Elan Kennedy Vital Signs Vital Name Observation Time Observation Value Comments Source BP Systolic 2019-04-23 10:56:00 109 mm[Hg] Location: RUE; Positi on: Sitting [facility] BP Diastolic 2019-04-23 10:56:00 80 mm[Hg] Location: RUE; Positi on: Sitting [facility] Height 2019-04-23 10:56:00 62 [in_us] [facility] Weight 2019-04-23 10:56:00 144.5 [lb_av] [facility] Body Mass Index Calculated 2019-04-23 10:56:00 26.43 kg/m2 [facility] Temperature 2019-04-23 10:56:00 98.2 [degF] Method: Oral [facility] Heart Rate 2019-04-23 10:56:00 73 /min Quality: Normal [facility] Respiration Rate 2019-04-23 10:56:00 18 /min Quality: Normal [facility] O2 SAT 2019-04-23 10:56:00 95 % Source: RA [facility] Systolic (mm Hg) 2019-04-18 19:30:00 Juan rial [place] Diastolic (mm Hg) 2019-04-18 19:30:00 Mem orial [facility] Respitory Rate 2019-04-18 19:30:00 [facility] [place] Systolic (mm Hg) 2019-04-18 19:15:00 Juan rial [place] Diastolic (mm Hg) 2019-04-18 19:15:00 Mem orial [place] Respitory Rate 2019-04-18 19:15:00 [facility] [place] Systolic (mm Hg) 2019-04-18 18:55:00 Juan rial [place] Diastolic (mm Hg) 2019-04-18 18:55:00 Mem orial [facility] Respitory Rate 2019-04-18 18:55:00 Memori [facility] Heart Rate 2019-04-18 16:00:00 [facility] Temperature Oral (F) 2019-04-18 16:00:00 98.4 F [facility] Height 2019-04-16 14:31:00 157.48 cm [facility] BMI Calculated 2019-04-16 14:31:00 Jean al [facility] Weight 2019-04-16 14:31:00 Richard Duran BP Systolic 2019-04-04 11:37:00 122 mm[Hg] Location: RUE; Positi on: Sitting [facility] BP Diastolic 2019-04-04 11:37:00 82 mm[Hg] Location: RUE; Positi on: Sitting [facility] Height 2019-04-04 11:37:00 62 [in_us] [facility] Weight 2019-04-04 11:37:00 145.5 [lb_av] [facility] Body Mass Index Calculated 2019-04-04 11:37:00 26.61 kg/m2 [facility] Temperature 2019-04-04 11:37:00 97.9 [degF] Method: Oral [facility] Heart Rate 2019-04-04 11:37:00 67 /min Quality: Normal Unive [facility] Respiration Rate 2019-04-04 11:37:00 18 /min Quality: Normal [facility] O2 SAT 2019-04-04 11:37:00 97 % Source: RA [facility] Procedures Procedure Date / Time Performed Performing Clinician Miky e History of Knee surgery [facility] History of Cholecystectomy Unive [facility] History of Section [facility] History of Oophorectomy [facility] History of Tubal Ligation Univer [facility] History of Hysterectomy total [facility] History of Small bowel resection [facility] History of Inguinal hernia repair [facility] History of Temporomandibular joint surgery [facility] Cataract surgery<sup>1</sup> Mem orial [place] section [facility] n Hernia repair [facility] Hysterectomy [facility] Oophorectomy [facility] Operation [facility] Tubal ligation [facility] Plan of Care Planned Activity Planned Date Details Comments Source Future Scheduled Test 2020-05-15 00:00:00 INFLUENZA VACCINE [code = INFLUENZA VACCINE] [facility] Future Scheduled Test 2010 00:00:00 BREAST CANCER SCRE ENING [code = BREAST CANCER SCREENING] [facility] Future Scheduled Test 2010 00:00:00 COLONOSCOPY SCREEN ING [code = COLONOSCOPY SCREENING] [facility] Scheduled Test 2010 00:00:00 SHINGLES VACCINES (#1) [code = SHINGLES VACCINES (#1)] [facility] Scheduled Test 1981 00:00:00 Screening for duncan gnant neoplasm of cervix (procedure) [code = 819034455] [facility] Encounters Start Date/Time End Date/Time Encounter Type Admission Type Attendi [facility] Care Department Encounter ID Source 2019-04-23 10:30:00 2019-04-23 10:30:00 Appointment; ERNESTO LOPEZ M.D. BANKI, FARZANEH, M.D. [facility] Thoracic Surgery [facility] [id number] [facility] 2019-04-18 10:21:00 2019-04-18 14:54:00 Outpatient Sandy Lopez [facility] [id number] 2019-04-18 10:21:00 2019-04-18 10:21:00 Outpatient [facility] [id number] [facility] 2019-04-04 09:05:00 2019-04-04 23:59:00 Outpatient Sandy Lopez [facility] [id number] 2019-04-04 11:00:00 2019-04-04 11:00:00 Appointment; ERNESTO LOPEZ M.D. BANKI, FARZANEH, M.D. [facility] Thoracic Surgery [facility] [id number] [facility] 2019-04-04 09:05:00 2019-04-04 09:05:00 Outpatient [facility] [id number] [facility] Results Test Description Test Time Test Comments Results Result Comments Source CT BRAIN WO 2020-03-22 15:30:00 [facility] [address] [place] [address] Patient Name: BARBARA CERVANTES MR #: [id number] : 1960 Age/Sex: 59/F Req #: [id number] Adm Physician: Ordered by: ILSA STORY, MAX STORY Report #: [id number] Location: ER Room/Bed: Procedure: [id number] CT/CT BRAIN WO Exam Date: 03/22/20 Exam Time: 1500 REPORT STATUS: Signed History: Dizziness Comparison studies: None Technique: Axial images were obtained from the skull base to the vertex. Coronal and sagittal reconstructions obtained from the axial data. Dose modulation, iterative reconstruction, and/or weight based adjustment of the mA/kV was utilized to reduce the radiation dose to as low as reasonably achievable. Findings: Scalp/skull: No abnormalities. No fractures, blastic or lytic lesions. Extra-axial spaces: No masses. No fluid collections. Brain sulci: Appropriate for age. Ventricles: Normal in size and configuration. No hydrocephalus. Parenchyma: No abnormal densities. No masses, hemorrhage, acute or chronic cortical vascular insults. Sellar/suprasellar region: No abnormalities Craniocervical junction: Patent foramen magnum. No Chiari one malformation. IMPRESSION: No abnormalities . Signed by: DR He Pretty M.D. on 03/22/2020 3:32 PM Dictated By: HE POWERS MD 153 Transcribed By: VARUN on 03/22/20 153 COPY TO: MAX ROSENBAUM ABDOMEN COMPLETE [place] [address] Patient Name: BARBARA CERVANTES MR #: [id number] : 1960 Age/Sex: 57/F Req #: [id number] Adm Physician: Ordered by: KESHIA RUIZ MD Report #: [id number] Location: Room/Bed: Procedure: [id number] US/US ABDOMEN COMPLETE Exam Date: Exam Time: [...] hepatic echogenicity compatible with fatty infiltration. Manolo Winter D.O. Dictated by: Manolo Winter D.O. on 09/26/2017 at 11:30 Electronically approved by: Manolo Winter D.O. on 09/26/2017 at 11:30 Dictated By: MANOLO WINTER DO 1130 Transcribed By: JADIEL on 09/26/17 1130 COPY TO: KESHIA RUIZ MD
--- NOTE | 2020-03-22 15:48 | Diagnostic Imaging Report ---
EXAM: CHEST SINGLE (PORTABLE) DATE: 03/22/2020 3:02 PM INDICATION: Chest pain COMPARISON: None FINDINGS: The trachea is midline. The lungs are symmetrically expanded without evidence for large focal consolidation, pneumothorax, or significant pleural effusion. The cardiomediastinal silhouette appears magnified by technique but otherwise unremarkable. The pulmonary vasculature is not engorged. No acute osseous abnormalities identified. The surrounding soft unremarkable. IMPRESSION: No acute cardiopulmonary process identified. Signed by: Dr. Hank Maria MD on 03/22/2020 3:45 PM
[2020-03-22 16:01] LABS: BASOPHILS % 0.4 % (0.0-1.0); EOSINOPHILS # (AUTO) 0.2 (0.0-0.4); EOSINOPHILS % 2.3 % (0.0-6.0); LYMPHOCYTES # (AUTO) 2.4 (1.0-3.2); LYMPHOCYTES % 27.9 % (18.0-39.1); MEAN CORPUSCULAR HEMOGLOBIN 23.1 pg (28-32); MEAN CORPUSCULAR HGB CONC 28.3 g/dL (31-35); MEAN CORPUSCULAR VOLUME 81.7 fL (81-99); MONOCYTES # (AUTO) 0.6 (0.2-0.8); MONOCYTES % 7.2 % (4.4-11.3); NEUTROPHILS # (AUTO) 5.3 (2.1-6.9); NEUTROPHILS % 61.7 % (38.7-80.0); PLATELET COUNT 353 x10e3/uL (140-360); RED BLOOD COUNT 2.73 x10e6/uL (3.6-5.1); RED CELL DISTRIBUTION WIDTH 15.5 % (11.7-14.4)
[2020-03-22 16:05] LABS: HEMATOCRIT 22.3 % (34.2-44.1); HEMOGLOBIN 6.3 g/dL (12.0-16.0)
[2020-03-22 16:25] LABS: ALBUMIN 3.6 g/dL (3.5-5.0); ALBUMIN/GLOBULIN RATIO 1.2 (0.8-2.0); ANION GAP 12.1 mmol/L (8-16); CALCIUM 9.3 mg/dL (8.4-10.2); CREATININE, SERUM 1.29 mg/dL (0.57-1.11); MAGNESIUM 1.9 MG/DL (1.3-2.1); POTASSIUM 4.1 mmol/L (3.5-5.1)
--- NOTE | 2020-03-22 16:25 | NUR ---
LAB CALLED TO DRAW TYPE AND CROSS MATCH
[2020-03-22 16:27] LABS: INR 0.92; PROTHROMBIN TIME 12.9 seconds (11.9-14.5)
[2020-03-22 16:28] LABS: PARTIAL THROMBOPLASTIN TIME 29.6 seconds (23.8-35.5)
[2020-03-22] MEDS ORDERED: SODIUM CHLORIDE 0.9% 250ML 250 ML IV ONE (16:30)
[2020-03-22 16:45] LABS: CREATINE KINASE MB 0.5 ng/mL (0-5.0); THYROID STIMULATING HORMONE 1.498 uIU/mL (0.350-4.940)
[2020-03-22] MEDS ORDERED: PROTONIX 200MG/SODIUM CHLORIDE 0.9% 250 ML BAG IV SCH (16:45)
[2020-03-22] MEDS: PANTOPRAZOL 40MG/SOD CHL 0.9% 50 ML IV SCH ×2 (17:00→20:25)
--- NOTE | 2020-03-22 17:05 | NUR ---
LAB AT BEDSIDE, DRAWING TYPE AND CROSS MATCH
[2020-03-22 17:28] LABS: BILIRUBIN,URINE NEGATIVE (NEGATIVE); CLARITY,URINE SL CLOUDY (CLEAR); COLOR,URINE YELLOW (YELLOW); KETONES,URINE NEGATIVE (NEGATIVE); LEUKOCYTE ESTERASE ,URINE SMALL (NEGATIVE); NITRITE,URINE NEGATIVE (NEGATIVE); PROTEIN,URINE DIPSTICK NEGATIVE (NEGATIVE); URINE UROBILINOGEN 0.2 mg/dL (0.2 - 1)
[2020-03-22 17:29] LABS: EPITHELIAL CELLS,URINE RARE /LPF
[2020-03-22 18:09] VITALS: BP 141/62
[2020-03-22] MEDS ORDERED: CRESTOR10 MG PO (18:19)
[2020-03-22] MEDS ORDERED: DICYCLOMINE HCL10 MG PO (18:19)
[2020-03-22] MEDS ORDERED: NADOLOL20 MG PO (18:19)
[2020-03-22] MEDS ORDERED: AMITRIPTYLINE H50 MG PO (18:19)
[2020-03-22] MEDS ORDERED: VERAPAMIL ER120 MG PO (18:19)
[2020-03-22] MEDS ORDERED: FENOFIBRATE145 MG PO (18:19)
[2020-03-22] MEDS ORDERED: HUMIRA40 MG/0.8 (18:19)
[2020-03-22] MEDS ORDERED: DEXILANT60 MG PO (18:19)
[2020-03-22] MEDS ORDERED: MESALAMINE1000 MG RC (18:19)
[2020-03-22] MEDS ORDERED: LEVOTHYROXINE50 MCG PO (18:19)
[2020-03-22] MEDS ORDERED: AIMOVIG AU140 MG/1 M (18:19)
[2020-03-22 18:44] VITALS: BP 141/62
--- NOTE | 2020-03-22 19:04 | NUR ---
Patient arrived to the unit at 1600. Patient came via stretcher with GAGE Mead from ER. Patient AOx3, patient IV is running at 10 mL/hr in the right AC 20g. Patient assessed and oriented to room, procedures, and plan of care. Patient's doctor aware he is here, Dr. Michael Cee is already aware. Patient medications reconciled, no other questions or concerns at this time. Patient is awaiting 2 units of PRBCs. Report given to oncoming shift.
--- NOTE | 2020-03-22 19:20 | NUR ---
Patient received lying in bed. AAO x 4. Patient had no complaints of pain. Respirations even and non-labored. Safety measures implemented. Patient instructed to call for assistance when needed. Call light within reach.
--- NOTE | 2020-03-22 19:54 | NUR ---
Patient has low grade fever---99.8 F. Patient has orders for blood transfusion. Dr. Gotti notified. New order received for Tylenol 650mg PO x 1.
[2020-03-22 20:29] VITALS: BP 129/66
[2020-03-22] MEDS ORDERED: ACETAMINOPHEN 325 MG TAB PO ONE (20:30)
[2020-03-22] MEDS ORDERED: SODIUM CHLORIDE 0.9% 250ML 250 ML ONE (21:46)
[2020-03-22] MEDS ORDERED: METRONIDAZOLE 500MG/NS 100ML 100 ML IV SCH (22:15)
[2020-03-22] MEDS ORDERED: AZTREONAM 1 GM/NS 50 ML 50 ML IV SCH (22:15)
[2020-03-22] MEDS ORDERED: HYDRALAZINE HCL 20 MG/ML VIAL IV PRN (22:15)
[2020-03-22] MEDS ORDERED: ACETAMINOPHEN 1000 MG/100 ML IV PRN (22:15)
--- NOTE | 2020-03-22 22:15 | NUR ---
Blood transfusion initiated. No adverse reaction noted. Will continue to monitor patient.
[2020-03-22 23:26] VITALS: BP 126/76
[2020-03-23] VITALS (8 sets, daily range): BP systolic 121–141; BP diastolic 57–76
--- NOTE | 2020-03-23 00:15 | NUR ---
Blood transfusion (1st unit) completed. No adverse reaction noted.
--- NOTE | 2020-03-23 02:15 | NUR ---
IV in left arm infiltrated. Old IV removed with tip intact. New IV inserted in Right Wrist 20G. Patient tolerated well.
--- NOTE | 2020-03-23 02:20 | NUR ---
Patient off floor for CT/ABD.
--- NOTE | 2020-03-23 02:45 | NUR ---
Patient back to room from CT/ABD. Patient in stable condition.
[2020-03-23] MEDS: NITROGLYCERIN 0.4 MG SUBL SL PRN ×2 (03:00→17:15)
[2020-03-23] MEDS: PANTOPRAZOL 40MG/SOD CHL 0.9% 50 ML IV SCH ×5 (03:00→19:30)
--- NOTE | 2020-03-23 03:40 | Diagnostic Imaging Report ---
EXAM: CT Abdomen and Pelvis WITHOUT contrast INDICATION: ^GIB ^[id number] ^[id number] COMPARISON: CT dated 06/07/2012 TECHNIQUE: Abdomen and pelvis were scanned utilizing a multidetector helical scanner from the lung base to the pubic symphysis without administration of IV contrast. Absence of intravenous contrast decreases sensitivity for detection of focal lesions and vascular pathology. Coronal and sagittal reformations were obtained. Routine protocol was performed. IV CONTRAST: None ORAL CONTRAST: Readicat COMPLICATIONS: None RADIATION DOSE: Total DLP: 338.90 mGy*cm Estimated effective dose: (DLP x 0.015 x size factor) mSv CTDIvol has been reviewed. It is below the limits set by the Radiation Protocol Committee (RPC). FINDINGS: LINES and TUBES: None. LOWER THORAX: Unchanged lingular scarring and right lung base calcified granulomas. HEPATOBILIARY: Unenhanced liver is unremarkable. No biliary ductal dilation. GALLBLADDER: Surgically absent. SPLEEN: No splenomegaly. PANCREAS: No focal masses or ductal dilatation. ADRENALS: No adrenal nodules KIDNEYS/URETERS: No hydronephrosis. Limited for evaluation of renal parenchyma without intravenous contrast. No stones. GI TRACT: No abnormal distention, wall thickening, or evidence of bowel obstruction. Appendix is not visualized. PELVIC ORGANS/BLADDER: Hysterectomy. Bladder is unremarkable. LYMPH NODES: No lymphadenopathy. VESSELS: Unremarkable. PERITONEUM / RETROPERITONEUM: No free air or fluid. BONES: Unremarkable. SOFT TISSUES: Unremarkable. IMPRESSION: 1. No acute inflammatory process in the abdomen/pelvis. Please note that this study is limited for evaluation of GI bleeding, especially with the presence of positive oral contrast. Nuclear medicine tagged RBC scan can be obtained for further evaluation of GI bleeding. Signed by: Dr. Luan Curry MD on 03/23/2020 3:37 AM
--- NOTE | 2020-03-23 04:35 | NUR ---
Blood transfusion (2nd unit) in progress. No adverse reaction noted. Will continue to monitor patient.
--- NOTE | 2020-03-23 05:00 | NUR ---
Patient complained that IV access was hurting her. Blood transfusion stopped. Old IV removed with tip intact. New IV inserted in right FA 20G. Patient tolerated well. Blood transfusion re-started.
--- NOTE | 2020-03-23 07:00 | NUR ---
Shift report given to oncoming nurse.
--- NOTE | 2020-03-23 07:14 | NUR ---
Second unit of blood transfusion completed. No adverse reaction noted.
[2020-03-23] MEDS: METRONIDAZOLE 500MG/NS 100ML 100 ML IV SCH ×5 (08:33→23:17)
[2020-03-23] MEDS ORDERED: SODIUM CHLORIDE 0.9% 250ML 250 ML ONE (08:42)
[2020-03-23 08:53] LABS: BASOPHILS # (AUTO) 0.1 (0.0-0.1); BASOPHILS % 0.6 % (0.0-1.0); EOSINOPHILS # (AUTO) 0.2 (0.0-0.4); EOSINOPHILS % 2.8 % (0.0-6.0); HEMATOCRIT 28.7 % (34.2-44.1); LYMPHOCYTES # (AUTO) 3.1 (1.0-3.2); LYMPHOCYTES % 35.4 % (18.0-39.1); MEAN CORPUSCULAR HEMOGLOBIN 25.7 pg (28-32); MEAN CORPUSCULAR HGB CONC 31.4 g/dL (31-35); MONOCYTES # (AUTO) 0.8 (0.2-0.8); MONOCYTES % 9.4 % (4.4-11.3); NEUTROPHILS # (AUTO) 4.5 (2.1-6.9); NEUTROPHILS % 51.5 % (38.7-80.0); PLATELET COUNT 291 x10e3/uL (140-360)
[2020-03-23] MEDS ORDERED: ASPIRIN 81 MG ENTERIC COATED PO SCH (09:00)
[2020-03-23 09:06] LABS: ALBUMIN/GLOBULIN RATIO 1.3 (0.8-2.0); CALCIUM 8.6 mg/dL (8.4-10.2); CREATININE, SERUM 1.14 mg/dL (0.57-1.11); MAGNESIUM 1.9 MG/DL (1.3-2.1)
[2020-03-23 09:48] LABS: CHOL/HDL RATIO 3.3 (3.0-3.6)
[2020-03-23 10:03] LABS: PHOSPHORUS 3.5 MG/DL (2.3-4.7)
[2020-03-23 10:16] LABS: CREATINE KINASE MB 0.8 ng/mL (0-5.0)
[2020-03-23 10:28] LABS: THYROID STIMULATING HORMONE 2.378 uIU/mL (0.350-4.940)
[2020-03-23] MEDS: AZTREONAM 1 GM/NS 50 ML 50 ML IV SCH ×3 (10:53→23:12)
[2020-03-23 19:06] LABS: CREATINE KINASE MB 0.8 ng/mL (0-5.0)
[2020-03-23] MEDS ORDERED: AMITRIPTYLINE HCL 25 MG TAB PO SCH (21:00)
--- NOTE | 2020-03-23 23:06 | History and Physical ---
CHIEF COMPLAINT: Increased weakness, generalized pain, and shortness of breath with exertion. HISTORY OF PRESENT ILLNESS: The patient is a 59-year-old female with shortness of breath and chest pain, weakness for the past few days. The patient with shortness of breath on exertion as well. She does have history of Crohn disease ulcer with remote small colon resection. She also has a history of multiple other problems including migraine headaches and fibromyalgia. The patient came in and lab work showed that her hemoglobin is 6.3. The patient did not have any gross bleeding. No gross melena or bright red blood per rectum. The patient had a colonoscopy previously. She has also had EGD, found to have a small ulcer previously. The patient is otherwise stable at this time. She did receive 2 units of packed red blood cell while waiting in the emergency room and up on the floor. The patient currently is stable. PAST MEDICAL HISTORY: 1. Crohn disease. 2. Migraine headaches. 3. Dyslipidemia. 4. Hypothyroidism. 5. Hypertension. 6. Fibromyalgia. PAST SURGICAL HISTORY: 1. Small section of colon resected. 2. . 3. Cholecystectomy. SOCIAL HISTORY: The patient does not smoke or use alcohol. No regular drugs. ALLERGIES: ADHESIVE TAPE, PENICILLIN, ERYTHROMYCIN BASE, HYDROCODONE, IODINE, LEVOTHYROXINE, MORPHINE, PROPRANOLOL, RIFAXIMIN, SUMATRIPTAN, TRAMADOL. PHYSICAL EXAMINATION: VITAL SIGNS: Temperature is 98, blood pressure 136/71, pulse rate is 56, respirations 18. GENERAL: The patient is not in acute distress. She is awake. HEENT: Normocephalic and atraumatic. Pupils reactive. Anicteric. NECK: Supple grossly. PULMONARY: Diminished breath sounds. CARDIOVASCULAR: Regular rhythm. ABDOMEN: Soft, nontender, and nondistended. EXTREMITIES: No gross cyanosis or edema. NEUROLOGIC: There is no gross focal deficit. LABORATORY DATA: WBC is 8.6, hemoglobin 6.3, hematocrit 22.3, and platelets is 353. Chemistry; sodium is 140, potassium 4, chloride 113, bicarb 19, BUN 17, creatinine 1.1, glucose is 104. B12 604. TSH is 2.3. Serology, coronavirus PCR negative. Urinalysis is otherwise unremarkable. Stool for occult blood is positive. IMAGING: CT abdomen and pelvis showed no acute inflammatory process in the abdomen or pelvis. Chest x-ray otherwise unremarkable. IMPRESSION: 1. Upper versus lower GI bleed, could be recurrent ulcer with symptomatic anemia, status post 2 units blood transfusion. 2. History of Crohn disease, ongoing treatment. 3. Dyslipidemia. 4. Hypertension. 5. Hypothyroidism. PLAN: Start the patient on antibiotic empirically. Azactam and Flagyl for now. Consultation with GI, Dr. Andres Salvador. Continue with some home medication. We will follow up on the patient's recommendation. We will hold off on the biologics medication for now until Dr. Andres Salvador see the patient. Repeat lab work in the morning. MD CLAUDE Gaspar/JOMAR /[id number]
[2020-03-23] MEDS ORDERED: MESALAMINE DR400 MG PO (23:44)
[2020-03-23] MEDS ORDERED: AMITRIPTYLINE H25 MG PO (23:44)
--- NOTE | 2020-03-24 | NUR ---
Patient complained that her migraine has not subsided despite administration of Amitriptyline 150 mg PO. A message was left on Dr. Gotti's voice-mail. Awaiting call back.
[2020-03-24 04:01] VITALS: BP 137/81
[2020-03-24] MEDS: PANTOPRAZOL 40MG/SOD CHL 0.9% 50 ML IV SCH ×4 (05:16→19:00)
[2020-03-24] MEDS: AZTREONAM 1 GM/NS 50 ML 50 ML IV SCH ×3 (05:25→21:11)
[2020-03-24] MEDS: METRONIDAZOLE 500MG/NS 100ML 100 ML IV SCH ×3 (06:00→22:00)
[2020-03-24] MEDS: LEVOTHYROXINE SODIUM 50 MCG TAB PO SCH (06:00)
[2020-03-24 06:55] LABS: BASOPHILS # (AUTO) 0.1 (0.0-0.1); BASOPHILS % 0.7 % (0.0-1.0); EOSINOPHILS # (AUTO) 0.4 (0.0-0.4); EOSINOPHILS % 5.5 % (0.0-6.0); HEMATOCRIT 30.2 % (34.2-44.1); HEMOGLOBIN 9.4 g/dL (12.0-16.0); LYMPHOCYTES # (AUTO) 2.5 (1.0-3.2); MEAN CORPUSCULAR HEMOGLOBIN 26.1 pg (28-32); MEAN CORPUSCULAR HGB CONC 31.1 g/dL (31-35); MEAN CORPUSCULAR VOLUME 83.9 fL (81-99); MONOCYTES # (AUTO) 0.8 (0.2-0.8); MONOCYTES % 11.5 % (4.4-11.3); NEUTROPHILS # (AUTO) 3.4 (2.1-6.9); PLATELET COUNT 305 x10e3/uL (140-360); RED CELL DISTRIBUTION WIDTH 16.1 % (11.7-14.4)
--- NOTE | 2020-03-24 07:00 | NUR ---
Walking rounds done. Patient resting comfortably. Shift report given to oncoming nurse regarding patient's status.
[2020-03-24 07:21] LABS: ANION GAP 12.1 mmol/L (8-16); CALCIUM 8.9 mg/dL (8.4-10.2); CREATININE, SERUM 1.01 mg/dL (0.57-1.11); POTASSIUM 4.1 mmol/L (3.5-5.1)
[2020-03-24 08:00] VITALS: BP 146/78
[2020-03-24] MEDS: VERAPAMIL HCL 120 MG TABSR PO SCH (08:16)
[2020-03-24] MEDS: NADOLOL 40 MG TAB PO SCH (08:16)
[2020-03-24 08:17] VITALS: BP 146/78
[2020-03-24] MEDS: MESALAMINE 400 MG CAP PO SCH (09:45)
[2020-03-24 11:58] VITALS: BP 148/74
[2020-03-24] MEDS ORDERED: RELPAX40 MG PO (13:26)
--- NOTE | 2020-03-24 13:46 | NUR ---
spoke with Dr. Salvador about consult, he is aware and stated he will see the patient soon
[2020-03-24] MEDS ORDERED: ONDANSETRON HCL 4 MG ORAL DISINTEGRATING TAB PO PRN (15:30)
[2020-03-24] MEDS ORDERED: PEG (High)/E-LYTE SOLN 4,000 ML BTL PO ONE (16:00)
--- NOTE | 2020-03-24 16:21 | NUR ---
Nutrition Screen Note RD Recommendation for Physician: -Continue current diet as ordered Plan of Care: RD following, monitoring for tolerance and adequacy Nutrition reason for involvement: Nutrition Risk Trigger MST 3 Primary Diagnose(s): chest pain PMH: Crohns disease, dyslipidemia, migraine, headaches, hypothyroid, HTN, fibromyalgia, colon resection, cholecystectomy Ht: 62 in Wt:137 lb BMI: 25.1 kg/m2 IBW:[address] Assessment: (03/24/20) Chart reviewed. Labs and meds reviewed. Pt is a 59 year old female admitted with chest pain. Pt reports a decreased appetite with 50% meal intake over the past month. It is recorded that pt consumed 75-100% of meals yesterday. No weight loss reported and pt mentioned she usually weighs 135 lbs. Pt reports some nausea. No chewing/swallowing issues. Will continue to monitor Current Diet: cardiac Malnutrition Evaluation (03/24/20) The patient does not meet criteria for a specified degree of malnutrition at this time. Will re-evaluate at follow-up as appropriate. Diet Education Needs Assessment: Pt declined the need for diet education at time of visit Nutrition Care Level: low Signed: Viri Salazar, RD, LD
[2020-03-24 18:01] VITALS: BP 122/67
[2020-03-24 19:52] VITALS: BP 149/83
[2020-03-24] MEDS ORDERED: AMITRIPTYLINE HCL 25 MG TAB PO SCH (21:00)
[2020-03-25] MEDS: PANTOPRAZOL 40MG/SOD CHL 0.9% 50 ML IV SCH ×3 (05:00→10:26)
[2020-03-25 05:21] VITALS: BP 139/79
[2020-03-25] MEDS: METRONIDAZOLE 500MG/NS 100ML 100 ML IV SCH (05:47)
[2020-03-25] MEDS: LEVOTHYROXINE SODIUM 50 MCG TAB PO SCH (05:47)
[2020-03-25] MEDS: AZTREONAM 1 GM/NS 50 ML 50 ML IV SCH (05:47)
--- NOTE | 2020-03-25 07:00 | NUR ---
received bedside report. pt is alert resting in bed, no s/s of distress noted. pt was informed that since she has not had a BM and is not cleared out, the colonoscopy will have to be rescheduled. informed patient that Dr. Salvador will be in later this afternoon and that he would like to do the colonoscopy as an outpatient procedure and the patient will need to prep at home.
[2020-03-25 07:46] VITALS: BP 148/77
[2020-03-25 08:10] VITALS: BP 148/77
[2020-03-25] MEDS: VERAPAMIL HCL 120 MG TABSR PO SCH (08:54)
[2020-03-25] MEDS: MESALAMINE 400 MG CAP PO SCH (08:54)
[2020-03-25] MEDS: NADOLOL 40 MG TAB PO SCH (08:54)
[2020-03-25] MEDS ORDERED: ELETRIPTAN HYDROBROMIDE 40 MG TAB PO SCH (09:00)
[2020-03-25 10:11] LABS: HEMATOCRIT 31.5 % (34.2-44.1); HEMOGLOBIN 9.8 g/dL (12.0-16.0)
--- NOTE | 2020-03-25 10:25 | NUR ---
Pt. expressed no spiritual or emotional concerns at this time. Pt states she hopes to discharge home soon. Pt's at bedside. Provided hospitality and information on how to reach briefcase sewer, if needed. No need to follow at this time. TAMI[facility] [employer] [facility] O: [phone]
--- NOTE | 2020-03-25 10:46 | NUR ---
per Dr. Salvador's request, called and reported the HH results that were ordered stat. Dr. Salvador has cleared the patient to go home and is setting up outpatient colonoscopy for sunday
[2020-03-25 12:04] VITALS: BP 147/77
--- NOTE | 2020-03-26 04:26 | Discharge Summary ---
MEDICAL RECORD TECHNICIAN: Dr. Andres Salvador. FINAL DIAGNOSES: 1. Gastrointestinal bleed, status post blood transfusion. 2. Baseline history of Crohn disease. 3. Chest pain, resolved. SUMMARY: The patient is a 59-year-old female, who came in with hemoglobin and hematocrit of 6.3 and 22.3. The patient was having increasing shortness of breath. The patient is status post blood transfusion. Hemoglobin and hematocrit now are 9.4 and 30.2. Platelet is normal. White cell count is normal. The patient apparently has Crohn disease. She had an EGD previously with gastric ulcer, that was treated. She is pending for colonoscopy. Apparently, the patient did not clean well. Dr. Salvador suggested the patient to follow up with him as an outpatient and do a colonoscopy on Sunday. The patient is otherwise stable. Discharged home. Resume home medication. She was with chest pain when she came in, but most likely secondary to severe anemia; however, the patient does have an appointment with Dr. Sudheer Frazier, her lifts and cranes inspector. The patient to follow up with him for any further workup. Cardiac enzyme has been negative. EKG, normal sinus rhythm and normal EKG. The patient is stable, discharged home today. DISCHARGE MEDICATIONS: Resume home medication. DIET: Resume home diet. MD CLAUDE Gaspar/JOMAR /[id number]
== END 2020-03-25 12:11 | disposition home or self-care (01) | DRG 378 ==
LOC: ER 14:25 → ERHOLD 14:57 → MED/SURG3 18:02 → OBSVTOIN 22:15
PROVIDERS: ADMIT Internal Medicine; ATTEND Internal Medicine
PROC: 30233N1 Transfusion of Nonautologous Red Blood Cells into Peripheral Vein, Percutaneous Approach (ICD-10-PCS; principal; 2020-03-22)
DX: K92.2 Gastrointestinal hemorrhage, unspecified (principal); K50.90 Crohn's disease, unspecified, without complications; D64.9 Anemia, unspecified; E78.5 Hyperlipidemia, unspecified; E03.9 Hypothyroidism, unspecified; M79.7 Fibromyalgia; Z11.59 Encounter for screening for other viral diseases; R07.9 Chest pain, unspecified
CPT/HCPCS: 36415; 70450; 71045; 74176; 80048; 80053; 80061; 81001; 82270; 82550; 82553; 82607; 83735; 83880; 84100; 84443; 84484; 85014; 85018; 85025; 85610; 85730; 86850; 86900; 86920; 87086; 87635; 93005; 93306; 96361; 99284; J2405; J3010; J7050; P9016; Q0162

== ENCOUNTER → 2024-07-04 | Outpatient (REF) | payer OTHER ==
[~2024-07-04] MED LIST changes: +AIMOVIG AU140 MG/1 M; +AMITRIPTYLINE H25 MG PO; +AMITRIPTYLINE H50 MG PO; +CRESTOR10 MG PO; +DEXILANT60 MG PO; +DICYCLOMINE HCL10 MG PO; +FENOFIBRATE145 MG PO; +HUMIRA40 MG/0.8; +LEVOTHYROXINE50 MCG PO; +MESALAMINE DR400 MG PO; +MESALAMINE1000 MG RC; +NADOLOL20 MG PO; +RELPAX40 MG PO; +VERAPAMIL ER120 MG PO
== END ==
LOC: CT 10:21
PROVIDERS: ATTEND Nurse Practitioner Family
DX: R07.9 Chest pain, unspecified (principal); R94.2 Abnormal results of pulmonary function studies; R05.3 Chronic cough; R06.2 Wheezing; J30.9 Allergic rhinitis, unspecified; K50.90 Crohn's disease, unspecified, without complications; K21.9 Gastro-esophageal reflux disease without esophagitis; M40.209 Unspecified kyphosis, site unspecified
CPT/HCPCS: 71250